=== PATIENT | male | born 1950 | race Caucasian/White ===

== ENCOUNTER 2019-10-29 06:00 | Outpatient (CLI) | payer MEDICARE, OTHER, SELFPAY | END 2019-10-29 06:01 | disposition home or self-care (01) | LOC: LAB 10-13 15:15 | PROVIDERS: Family Provider Family Medicine; Visit Provider Nurse Practitioner Family | DX: E03.9 Hypothyroidism, unspecified (principal); G20 Parkinson's disease; I50.9 Heart failure, unspecified | CPT/HCPCS: 80053; 80061; 84443; 85025 ==